=== PATIENT | female | born 1990 | race Caucasian/White ===

== ENCOUNTER 2017-08-12 21:59 | Emergency (ER) | payer OTHER, MEDICAID ==
[~2017-08-12] VITALS: Ht 170.2 cm; Wt 90.7 kg
[~2017-08-12 21:59] MED LIST: BACTRIM DS TAB1 EACH PO; BACTROBAN CREAM30 G1 TOP; CEPHALEXIN 500500 M3 PO; CLEOCIN HCL300 MG PO; CLINDAMYCIN 1%60 M1 TP; DEPO-PROVERA IM; DIFLUCAN150 MG PO; DOXYCYCLINE 10100 MG PO; HYDROCODON-ACE1 EAC7 PO; HYDROCODONE-AP1 EAC6 PO; NOHOMEMEDICATIONS; NORCO 5-325 TA1 EAC1 PO; NORCO 5-325 TA1 EACH PO; OXECTA5 MG PO; PENICILLIN V P500 MG PO; PERCOCET 5-3251 EACH PO; POTASSIUM20 PO; SENNA S TABLET1 EACH PO; TRAMADOL 50 MG50 MG PO; ZYVOX600 MG PO
[2017-08-12] MEDS ORDERED: PERCOCET 7.5-31 EACH PO (23:30)
[2017-08-13 00:16] VITALS: BP 124/74
== END 2017-08-13 00:18 | disposition home or self-care (01) ==
LOC: M.ERS 21:59
DX: S53.101A Unspecified subluxation of right ulnohumeral joint, initial encounter (principal); F17.210 Nicotine dependence, cigarettes, uncomplicated; Z98.890 Other specified postprocedural states; Z88.1 Allergy status to other antibiotic agents; Z88.6 Allergy status to analgesic agent; Z88.5 Allergy status to narcotic agent; W18.39XA Other fall on same level, initial encounter; Y93.89 Activity, other specified; Y92.89 Other specified places as the place of occurrence of the external cause; Y99.8 Other external cause status

== ENCOUNTER 2018-02-12 21:59 | Emergency (ER) | payer OTHER, MEDICAID ==
[~2018-02-12] VITALS: Ht 170.2 cm; Wt 81.7 kg
[~2018-02-12 21:59] MED LIST changes: +PERCOCET 7.5-31 EACH PO
[2018-02-12] MEDS ORDERED: BACTRIM DS TAB1 EACH (22:10)
[2018-02-12] MEDS ORDERED: KEFLEX500 M1 (22:11)
[2018-02-13] MEDS ORDERED: ULTRAM 50MG TAB50 MG PO (00:15)
[2018-02-13 00:28] VITALS: BP 117/62
[2018-02-14] MEDS ORDERED: HYDROCODONE-AP1 EAC6 PO (13:35)
[2018-02-14] MEDS ORDERED: NYSTATIN100000 UNI PO (13:35)
[2018-02-14] MEDS ORDERED: DIFLUCAN150 MG PO (14:01)
[2018-02-14] MEDS ORDERED: CLEOCIN HCL150 MG PO (14:01)
== END 2018-02-13 00:29 | disposition home or self-care (01) ==
LOC: M.ERS 21:59
DX: L02.11 Cutaneous abscess of neck (principal); H44.001 Unspecified purulent endophthalmitis, right eye; F17.210 Nicotine dependence, cigarettes, uncomplicated; Z86.14 Personal history of Methicillin resistant Staphylococcus aureus infection; Z88.6 Allergy status to analgesic agent; Z88.1 Allergy status to other antibiotic agents; Z88.8 Allergy status to other drugs, medicaments and biological substances

== ENCOUNTER 2018-02-14 13:00 | Emergency (ER) | payer OTHER, MEDICAID ==
[~2018-02-14] VITALS: Ht 170.2 cm; Wt 77.1 kg
[~2018-02-14 13:00] MED LIST changes: +BACTRIM DS TAB1 EACH; +KEFLEX500 M1; +ULTRAM 50MG TAB50 MG PO
[2018-02-14] MEDS ORDERED: HYDROCODONE-AP1 EAC6 PO (13:35)
[2018-02-14] MEDS ORDERED: NYSTATIN100000 UNI PO (13:35)
[2018-02-14] MEDS ORDERED: CLEOCIN HCL150 MG PO (14:01)
[2018-02-14] MEDS ORDERED: DIFLUCAN150 MG PO (14:01)
[2018-02-14 14:09] VITALS: BP 118/70
== END 2018-02-14 14:10 | disposition home or self-care (01) ==
LOC: M.ERS 13:00
DX: L02.01 Cutaneous abscess of face (principal); L02.11 Cutaneous abscess of neck; B37.0 Candidal stomatitis; F17.210 Nicotine dependence, cigarettes, uncomplicated; Z88.6 Allergy status to analgesic agent; Z88.1 Allergy status to other antibiotic agents; Z86.14 Personal history of Methicillin resistant Staphylococcus aureus infection

== ENCOUNTER 2018-08-13 02:11 | Emergency (ER) | payer OTHER, MEDICAID ==
[~2018-08-13] VITALS: Ht 170.2 cm; Wt 69.8 kg
[~2018-08-13 02:11] MED LIST changes: +CLEOCIN HCL150 MG PO; +NYSTATIN100000 UNI PO
[2018-08-13 02:44] VITALS: BP 118/70
== END 2018-08-13 02:44 | disposition home or self-care (01) ==
LOC: M.ERS 02:11
DX: S61.212A Laceration without foreign body of right middle finger without damage to nail, initial encounter (principal); Z90.49 Acquired absence of other specified parts of digestive tract; Z98.890 Other specified postprocedural states; F17.210 Nicotine dependence, cigarettes, uncomplicated; Z88.1 Allergy status to other antibiotic agents; Z88.6 Allergy status to analgesic agent; Z88.8 Allergy status to other drugs, medicaments and biological substances; W26.0XXA Contact with knife, initial encounter; Y93.G3 Activity, cooking and baking; Y92.89 Other specified places as the place of occurrence of the external cause; Y99.8 Other external cause status